=== PATIENT | male | born 1945 | race Caucasian/White ===

== ENCOUNTER 2017-05-14 05:22 | Emergency (ER) | payer OTHER, MEDICARE ==
--- NOTE | 2017-05-14 05:40 | PDOC ---
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 The patient states that yesterday he had surgery on his right eye and underwent general anesthesia. The patient was able to urinate able surgery and was discharged home. The patient notes that since yesterday he has had worsening suprapubic pain and incontinence. <Graeme Angel - Last Filed: 05/14/17 05:46> - General History Source: Patient <JusticeChico bradford - Last Filed: 05/14/17 05:58> - General Chief Complaint: Urinary Problem Stated Complaint: URINARY PROBLEM Time Seen by Provider: 05/14/17 05:35 Past History <Graeme Angel - Last Filed: 05/14/17 05:46> - Past Medical History Anemia: No Asthma: No Cancer: No Cardiac Disorders: No CVA: No COPD: No CHF: No Dementia: No Diabetes: Yes (borderline niddm) GI Disorders: Yes (left colon ulcer,diverticulosis) Disorders: Yes (bph with rising psa) HTN: Yes Hypercholesterolemia: Yes Liver Disease: No Seizures: No Thyroid Disease: No - Surgical History Abdominal Surgery: No Appendectomy: No Cardiac Surgery: No Cholecystectomy: No Lung Surgery: No Neurologic Surgery: No Orthopedic Surgery: No - Psycho/Social/Smoking Cessation Hx Smoking History: Never smoked Have you smoked in the past 12 months: No Hx Alcohol Use: Yes (OCCASIONAL) Drug/Substance Use Hx: No Substance Use Type: None Hx Substance Use Treatment: No <Chico Hassan - Last Filed: 05/14/17 05:58> - Past Medical History Allergies/Adverse Reactions: Allergies Allergy/AdvReac Type Severity Reaction Status Date / Time latex [Latex] Allergy Rash Verified 05/14/17 05:27 Lobbbod-Yop-Dqc Reductase Allergy Verified 05/14/17 05:27 Inhibitor Home Medications: Ambulatory Orders Metformin HCl [Glucophage] 500 mg PO BID 01/25/12 Aspirin [ASA -] 81 mg PO DAILY 05/14/17 Ezetimibe [Zetia] 10 mg PO HS 05/14/17 Levofloxacin [Levaquin -] 500 mg PO DAILY #4 tablet 05/14/17 Losartan Potassium 35 mg PO DAILY 05/14/17 Mirabegron [Myrbetriq] 25 mg PO DAILY 05/14/17 Tadalafil [Cialis] 5 mg PO DAILY 05/14/17 Review of Systems - Review of Systems Able to Perform ROS?: Yes Comments:: 05/14/17 05:46 CONSTITUTIONAL: Absent: fever, chills, diaphoresis, generalized weakness, malaise, loss of appetite HEENT: Absent: rhinorrhea, nasal congestion, throat pain, throat swelling, difficulty swallowing, mouth swelling, ear pain, eye pain, visual Changes CARDIOVASCULAR: Absent: chest pain, syncope, palpitations, irregular heart rate, lightheadedness , peripheral edema RESPIRATORY: Absent: cough, shortness of breath, dyspnea with exertion, orthopnea, wheezing, stridor, hemoptysis GASTROINTESTINAL: Present: Suprapubic tenderness Absent: Abdominal distension, nausea, vomiting, diarrhea, constipation, melena, hematochezia GENITOURINARY: Present: Incontinence Absent: dysuria, frequency, urgency, hesitancy, hematuria, flank pain, genital pain MUSCULOSKELETAL: Absent: myalgia, arthralgia, joint swelling SKIN: Absent: rash, itching, pallor HEMATOLOGIC/IMMUNOLOGIC: Absent: easy bleeding, easy bruising, lymphadenopathy, frequent infections ENDOCRINE: Absent: unexplained weight gain, unexplained weight loss, heat intolerance, cold intolerance NEUROLOGIC: Absent: headache, focal weakness or paresthesias, dizziness, unsteady gait, seizure, mental status changes, bladder or bowel incontinence PSYCHIATRIC: Absent: anxiety, depression, suicidal or homicidal ideation, hallucinations. <Graeme Angel - Last Filed: 05/14/17 05:46> *Physical Exam - Vital Signs Last Vital Signs Temp Pulse Resp BP Pulse Ox 97.5 F L 92 H 22 183/95 98 05/14/17 05:35 05/14/17 05:35 05/14/17 05:35 05/14/17 05:35 05/14/17 05:35 - Physical Exam Comments: 05/14/17 05:47 GENERAL: Well developed, well nourished. Awake and alert. In no acute distress. HEENT: Normocephalic, atraumatic. PERRLA, EOMI. No conjunctival pallor. Sclerae are non -icteric. Moist mucous membranes. Oropharynx is clear. NECK: Supple. Full ROM. No JVD. Carotid pulses 2+ and symmetric, without bruits. No thyromegaly. No lymphadenopathy. CARDIOVASCULAR: Regular rate and rhythm. No murmurs, rubs, or gallops. Distal pulses are 2+ and symmetric. PULMONARY: No evidence of respiratory distress. Lungs clear to auscultation bilaterally. No wheezing, rales or rhonchi. ABDOMEN: (+) Mild suprapubic tenderness. Non-distended. No rebound or guarding. No organomegaly. Normoactive bowel sounds. MUSCULOSKELETAL Normal range of motion at all joints. No bony deformities or tenderness. No CVA tenderness. EXTREMITIES: No cyanosis. No clubbing. No edema. No calf tenderness. SKIN: Warm and dry. Normal capillary refill. No rashes. No jaundice. NEUROLOGICAL: Alert, awake, appropriate. Cranial nerves 2-12 intact. No deficits to light touch and temperature in face, upper extremities and lower extremities. No motor deficits in the in face, upper extremities and lower extremities. Normoreflexic in the upper and lower extremities. Normal speech. Toes are downgoing bilaterally. Gait is normal without ataxia. PSYCHIATRIC: Cooperative. Good eye contact. Appropriate mood and affect. <Graeme Angel - Last Filed: 05/14/17 05:46> ED Treatment Course - ADDITIONAL ORDERS Additional order review: 05/14/17 05:47 Catheter placed in ED. Patient immediately drained 1 L of clear urine. <Graeme Angel - Last Filed: 05/14/17 05:46> Medical Decision Making - Medical Decision Making 05/14/17 05:57 Dr. Hassan: The scribe's documentation has been prepared under my direction and personally reviewed by me in its entirery. I confirm that the note above accurately reflects all work, treatment, procedures, and medical decision making performed by me. <Chico Hassan - Last Filed: 05/14/17 05:58> *DC/Admit/Observation/Transfer - Attestations Scribe Attestion: 05/14/17 05:47 Documentation prepared by Graeme Angel, acting as biomedical manager for Chico Hassan DO. <Graeme Angel - Last Filed: 05/14/17 05:46> - Discharge Dispostion Admit: No <Chico Hassan - Last Filed: 05/14/17 05:58> Diagnosis at time of Disposition: Urinary retention - Discharge Dispostion Disposition: HOME Condition at time of disposition: Stable - Referrals Referrals: Michael Medellin MD., MD [Staff Physician] - - Patient Instructions Printed Discharge Instructions: DI for Urinary Retention in Men
[2017-05-14 05:46] VITALS: TEMP 97.5; BMI 22.1
[2017-05-14 05:56] VITALS: BP 138/79; PULSE 79
[2017-05-14] MEDS ORDERED: LEVOFLOXACIN 500 MG TABLET (FP) PO ONE (05:57)
[2017-05-14] MEDS ORDERED: LEVOFLOXACIN 500 MG TABLET (FP) ONE (06:04)
== END 2017-05-14 06:40 | disposition home or self-care (01) ==
LOC: JER 05:22
PROC: 0T9B70Z Drainage of Bladder with Drainage Device, Via Natural or Artificial Opening (ICD-10-PCS; principal; 2017-05-14)
DX: N40.1 Benign prostatic hyperplasia with lower urinary tract symptoms (principal); R33.8 Other retention of urine; I10 Essential (primary) hypertension; E11.9 Type 2 diabetes mellitus without complications; Z79.84 Long term (current) use of oral hypoglycemic drugs; E78.00 Pure hypercholesterolemia, unspecified
CPT/HCPCS: 51702; 99282-25

== ENCOUNTER 2017-05-20 21:20 | Emergency (ER) | payer OTHER, MEDICARE ==
[2017-05-20 21:36] VITALS: TEMP 99; BMI 16.5
--- NOTE | 2017-05-20 21:44 | PDOC ---
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 One week ago the patient had retinal detachment surgery and had a shen catheter placed one day later for urinary retention. The patient was also treated for UTI with a five day course of levaquin, that he completed, at that time. This morning the patient had his catheter removed and he urinated once with weak stream. After that the patient was unable to empty his bladder. He also endorses suprapubic pain since today. Denies any fever, chills, nausea, vomiting, or diarrhea. Urologist: Ulices Lebron MD Allergies: latex, Kudimse-Axv-Kce reductase inhibitor <Rosa M Restrepo - Last Filed: 05/20/17 22:53> <Fay Serra - Last Filed: 05/20/17 23:14> - General Chief Complaint: Urinary Catheter Problem Stated Complaint: URINARY CATHATER PROBLEM Time Seen by Provider: 05/20/17 21:42 Past History <Rosa M Restrepo - Last Filed: 05/20/17 22:53> - Past Medical History Anemia: No Asthma: No Cancer: No Cardiac Disorders: No CVA: No COPD: No CHF: No Dementia: No Diabetes: Yes (borderline niddm) GI Disorders: Yes (left colon ulcer,diverticulosis) Disorders: Yes (bph with rising psa) HTN: Yes Hypercholesterolemia: Yes Liver Disease: No Seizures: No Thyroid Disease: No - Surgical History Abdominal Surgery: No Appendectomy: No Cardiac Surgery: No Cholecystectomy: No Lung Surgery: No Neurologic Surgery: No Orthopedic Surgery: No - Psycho/Social/Smoking Cessation Hx Suicidal Ideation: No Smoking History: Never smoked Have you smoked in the past 12 months: No Hx Alcohol Use: Yes (OCCASIONAL) Drug/Substance Use Hx: No Substance Use Type: None Hx Substance Use Treatment: No <Fay Serra - Last Filed: 05/20/17 23:14> - Past Medical History Allergies/Adverse Reactions: Allergies Allergy/AdvReac Type Severity Reaction Status Date / Time latex [Latex] Allergy Rash Verified 05/20/17 21:36 Gegvunc-Fnf-Png Reductase Allergy Verified 05/20/17 21:36 Inhibitor Home Medications: Ambulatory Orders Metformin HCl [Glucophage] 500 mg PO BID 01/25/12 Ezetimibe [Zetia] 10 mg PO HS 05/14/17 Levofloxacin [Levaquin -] 500 mg PO DAILY #4 tablet 05/14/17 Losartan Potassium 35 mg PO DAILY 05/14/17 Review of Systems - Review of Systems Comments:: 05/20/17 22:55 CONSTITUTIONAL: Absent: fever, chills, diaphoresis, generalized weakness, malaise, loss of appetite HEENT: Absent: rhinorrhea, nasal congestion, throat pain, throat swelling, difficulty swallowing, mouth swelling, ear pain, eye pain, visual changes CARDIOVASCULAR: Absent: chest pain, syncope, palpitations, irregular heart rate, lightheadedness , peripheral edema RESPIRATORY: Absent: cough, shortness of breath, dyspnea with exertion, orthopnea, wheezing, stridor, hemoptysis GASTROINTESTINAL: Present: suprapubic pain Absent: abdominal distension, nausea, vomiting, diarrhea, constipation, melena, hematochezia GENITOURINARY: Present: urinary retention Absent: dysuria, frequency, urgency, hematuria, flank pain, genital pain MUSCULOSKELETAL: Absent: myalgia, arthralgia, joint swelling SKIN: Absent: rash, itching, pallor HEMATOLOGIC/IMMUNOLOGIC: Absent: easy bleeding, easy bruising, lymphadenopathy, frequent infections ENDOCRINE: Absent: unexplained weight gain, unexplained weight loss, heat intolerance, cold intolerance NEUROLOGIC: Absent: headache, focal weakness or paresthesia, dizziness, unsteady gait, seizure, mental status changes, bladder or bowel incontinence. PSYCHIATRIC: Absent: anxiety, depression, suicidal or homicidal ideation, hallucinations <Rosa M Restrepo - Last Filed: 05/20/17 22:53> *Physical Exam - Vital Signs Last Vital Signs Temp Pulse Resp BP Pulse Ox 99.0 F 84 18 148/89 98 05/20/17 21:32 05/20/17 21:32 05/20/17 21:32 05/20/17 21:32 05/20/17 21:32 - Physical Exam Comments: 05/20/17 22:56 GENERAL: Well developed, well nourished. Awake and alert. No acute distress. HEENT: Normocephalic, atraumatic. PERRLA, EOMI. Right subconjunctival hemorrhage (s/p surgery). No conjunctival pallor. Sclera are non-icteric. Moist mucous membranes. Oropharynx is clear. NECK: Supple. Full ROM. No JVD. Carotid pulses 2+ and symmetric, without bruits. No thyromegaly. No lymphadenopathy. CARDIOVASCULAR: Regular rate and rhythm. No murmurs, rubs, or gallops. Distal pulses are 2+ and symmetric. PULMONARY: No evidence of respiratory distress. Lungs clear to auscultation bilaterally. No wheezing, rales or rhonchi. ABDOMINAL: Soft. Suprapubic tenderness. Non-distended. No rebound or guarding. No organomegaly. Normoactive bowel sounds. : Shen catheter placed with 300ccs of urine in bag. MUSCULOSKELETAL: Normal range of motion at all joints. No bony deformities or tenderness. No CVA tenderness. EXTREMITIES: No cyanosis. No clubbing. No edema. No calf tenderness. SKIN: Warm and dry. Normal capillary refill. No rashes. No jaundice. NEUROLOGICAL: Alert, awake, appropriate. Cranial nerves 2-12 intact. Normal speech. Gait is normal without ataxia. PSYCHIATRIC: Cooperative. Good eye contact. Appropriate mood and affect. <Rosa M Restrepo - Last Filed: 05/20/17 22:53> - Vital Signs Last Vital Signs Temp Pulse Resp BP Pulse Ox 99.0 F 84 18 148/89 98 05/20/17 21:32 05/20/17 21:32 05/20/17 21:32 05/20/17 21:32 05/20/17 21:32 <Fay Serra - Last Filed: 05/20/17 23:14> ED Treatment Course - ADDITIONAL ORDERS Additional order review: Laboratory Results 05/20/17 21:59 Urine Color Straw Urine Appearance Clear Urine pH 6.0 Urine Protein Negative Urine Glucose (UA) 1+ H Urine Ketones Negative Urine Blood 2+ H Urine Nitrite Negative Urine Bilirubin Negative Urine Urobilinogen Negative Ur Leukocyte Esterase Negative Urine RBC 41 Urine WBC 3 Ur Epithelial Cells Rare Urine Mucus Rare <Rosa M Restrepo - Last Filed: 05/20/17 22:53> *DC/Admit/Observation/Transfer - Attestations Scribe Attestion: 05/20/17 22:57 Documentation prepared by Rosa M Restrepo, acting as medical assistant per diem for Fay Serra MD. <Rosa M Restrepo - Last Filed: 05/20/17 22:53> <Fay Serra - Last Filed: 05/20/17 23:14> Diagnosis at time of Disposition: Urinary retention - Discharge Dispostion Disposition: HOME Condition at time of disposition: Stable - Patient Instructions Printed Discharge Instructions: DI for Urinary Retention in Men Additional Instructions: please follow up with your urologist this week merchandise pickup/receiving associate your antibiotics at your pharmacy
[2017-05-20 22:25] LABS: URINE APPEARANCE CLEAR; URINE BILIRUBIN NEGATIVE (NEGATIVE); URINE COLOR STRAW; URINE GLUCOSE (UA) 1+ (NEGATIVE); URINE KETONE NEGATIVE (NEGATIVE); URINE LEUK ESTERASE NEGATIVE (NEGATIVE); URINE NITRITE NEGATIVE (NEGATIVE); URINE PROTEIN NEGATIVE (NEGATIVE); URINE UROBILINOGEN NEGATIVE E.U./dl (0.2-1.0)
[2017-05-20 22:28] LABS: URINE BLOOD 2+ (NEGATIVE)
[2017-05-20 22:30] LABS: URINE MUCUS RARE; URINE RBC 41 /hpf (0-3); URINE WBC 3 /hpf (3-5)
[2017-05-20 23:27] VITALS: BP 139/82; PULSE 78
--- NOTE | 2017-05-21 16:06 | PDOC ---
Patient Follow-up (Call Back) - Post ED Follow - Up Chief Complaint: Urinary Problem Condition at time of discharge: Stable Disposition at time of original discharge: HOME Reason for Call Back: Complaint/Condition F/U (pt called stating needs Cipro. Pt states told him she would send cipro. MD note states to pharmacy picking tech prescription.) - Disposition Additional Instructions/Notes: pt called stating was going to send a script for Cipro. 's note states pharmacy picking tech antibiotics but nothing was sent. Will send cipro to [facility].
== END 2017-05-20 23:27 | disposition home or self-care (01) ==
LOC: JER 21:20
DX: N40.1 Benign prostatic hyperplasia with lower urinary tract symptoms (principal); R33.8 Other retention of urine; I10 Essential (primary) hypertension; E11.9 Type 2 diabetes mellitus without complications; Z79.84 Long term (current) use of oral hypoglycemic drugs; E78.00 Pure hypercholesterolemia, unspecified
CPT/HCPCS: 81003; 81015; 99282-25